=== PATIENT | male | born 1970 | race Caucasian/White ===

== ENCOUNTER 2017-01-09 23:02 | Emergency (ER) | payer SELFPAY ==
[~2017-01-09] VITALS: Ht 180.3 cm; Wt 81.0 kg
[~2017-01-09 23:02] MED LIST: CLIN150
[2017-01-09 23:06] VITALS: BP 185/111; PULSE 81; RESP 18; TEMP 97.4; O2SAT 100
[2017-01-09 23:10] VITALS: BP 154/99; PULSE 85; RESP 16; O2SAT 100
--- NOTE | 2017-01-09 23:20 | PD ---
HPI Chief Complaint: Skin Problem Time Seen by Provider: 23:15 Travel History International Travel<30 days: No Contact w/Intl Traveler<30days: No Traveled to known affect area: No History of Present Illness HPI ABOUT 6 DAYS AGO HIT FOREHEAD ON CABINET, NO LOC FELT OK DIDN'T SEEK CARE (NOT ON ANY ANTICAOGULANTS)...OVER PAST 2 DAYS HE HAS BEEN PICKING AT IT AND HAS NOW NOTED A RED LUMP ON FOREHEAD. DENIES PHOTOPHOBIA/SZ/FEVER/GAVIRIA. PFSH Past Surgical History Tonsillectomy: Yes (1978) Social History Alcohol Use: Yes (6PK WEEKENDS) Tobacco Use: Yes (1PPD) Allergies-Medications (Allergen,Severity, Reaction): Coded Allergies: No Known Allergies (Verified Allergy, Mild, 11/21/06) Reported Meds & Prescriptions Reported Meds & Active Scripts Active Bactrim DS (Sulfamethoxazole-Trimethoprim) 800-160 Mg Tab 1 Tab PO BID Reported Cleocin (Clindamycin HCl) 150 Mg Cap Review of Systems Except as stated in HPI: all other systems reviewed are Neg Skin: Positive Other (SWELLING AND REDNESS) Physical Exam Narrative GENERAL: SKIN: Warm and dry. HEAD: Atraumatic. Normocephalic. FOREHEAD HAS A 4CM DIAMETER CONTUSION WITH SUPERINFECTION, NO FLUCTUANCE ONLY INDURATIOIN , NO STREAKING , NO LAD, ERYTHEMATOUS AND WARM. EYES: Pupils equal and round. No scleral icterus. No injection or drainage. ENT: No nasal bleeding or discharge. Mucous membranes pink and moist. NO HEMOTYMPANUM NECK: Trachea midline. No JVD. CARDIOVASCULAR: Regular rate and rhythm. RESPIRATORY: No accessory muscle use. Clear to auscultation. Breath sounds equal bilaterally. GASTROINTESTINAL: Abdomen soft, non-tender, nondistended. Hepatic and splenic margins not palpable. MUSCULOSKELETAL: Extremities without clubbing, cyanosis, or edema. No obvious deformities. NEUROLOGICAL: Awake and alert. No obvious cranial nerve deficits. Motor grossly within normal limits. Five out of 5 muscle strength in the arms and legs. Normal speech. PSYCHIATRIC: Appropriate mood and affect; insight and judgment normal. Data Data Last Documented VS Vital Signs Date Time Temp Pulse Resp B/P Pulse Ox O2 Delivery O2 Flow Rate FiO2 01/09/17 23:50 155/82 100 01/09/17 23:10 85 16 01/09/17 23:06 97.4 Orders Sulfamet-Trimeth Ds 800-160 Mg (Bactrim (01/09/17 23:30) [facility] Medical Decision Making Medical Screen Exam Complete: Yes Emergency Medical Condition: Yes Medical Record Reviewed: Yes Differential Diagnosis CONTUSION V FRACTURE V SUPERINFECTION V HEMOTYMPANUM Narrative Course PATIENT NEUROLOGICALLY INTACT, WAS FOUND TO HAVE EARLY FACIAL CONTUSION RESOLVING AND DRAINING EDEMA TO NOSE AND TO RIGHT INFRAORBITAL REGION...THIS IS INDEPENDANT OF THE SMALL AREA OF CELLULITIS ON RIGHT HEMIFOREHEAD. Diagnosis Primary Impression: FACIAL CONTUSION RESOLVING Additional Impression: CELLULITIS Patient Instructions: Cellulitis (ED), General Instructions Scripts Sulfamethoxazole-Trimethoprim (Bactrim DS)800-160 Mg Tab1 Tab PO BID #20 TAB Prov:Jarrod López MD 01/09/17 Disposition: 01 DISCHARGE HOME Condition: Stable Jarrod López MD Jan 09, 2017 23:20
[2017-01-09] MEDS ORDERED: BACT800T5 PO (23:21)
[2017-01-09] MEDS ORDERED: SULFAMETHOXAZOLE-TRIMETHOPRIM DS 800-160 MG TAB PO ONE (23:30)
[2017-01-09 23:50] VITALS: BP 155/82
== END 2017-01-09 23:52 | disposition home or self-care (01) ==
LOC: PHED 23:02
DX: S00.83XA Contusion of other part of head, initial encounter (principal); W22.8XXA Striking against or struck by other objects, initial encounter; F17.210 Nicotine dependence, cigarettes, uncomplicated; L03.211 Cellulitis of face
CPT/HCPCS: 99283

== ENCOUNTER 2017-04-19 22:36 | Observation (INO) | payer SELFPAY ==
[~2017-04-19] VITALS: Ht 180.3 cm; Wt 79.0 kg
[~2017-04-19 22:36] MED LIST changes: +BACT800T5 PO
[2017-04-19 22:45] VITALS: BP 144/77; PULSE 86; RESP 16; TEMP 97.9; O2SAT 95
--- NOTE | 2017-04-19 22:53 | PD ---
HPI Chief Complaint: Chest Pain Time Seen by Provider: 22:47 Travel History International Travel<30 days: No Contact w/Intl Traveler<30days: No Traveled to known affect area: No History of Present Illness HPI The patient is a 46 year old male who presents to the [facility] emergency department with a history of chest pain that occurred prior to arrival 4-5 times this evening. He had near syncope with it. It was sharp in character associated with a pressure sensation. It is on the left side of his chest. He had sob, nausea, and lightheaded sensation with it. It was coming and going for 30 minutes. He denies having any diaphoresis. He denies having any prior history of myocardial infarction or congestive heart failure. He denies having any prior history of DVT or PE. He does have a family history of heart disease in his brother and his father. The patient reports that he last had a stress test done many years ago. He denies having a primary care physician. He reports that he was diagnosed with hypertension 5 years ago, however it has not been treated. He denies having any prior history of hyperlipidemia or diabetes mellitus. He does report that he smokes 2 packs of cigarettes per day. Otherwise on review of systems, the patient denies any recent fevers, cough, congestion, neck pain, abdominal pain, vomiting, diarrhea, urinary symptoms, or neurologic symptoms. The patient denies having any recent problems with indigestion or heartburn. [facility] Past Medical History Narrative Medical The patient's past medical history is significant for hypertension 5 years ago- untreated, tobacco abuse Cardiovascular Problems: Yes Past Surgical History Narrative Surgical The patient's past surgical history is significant for tonsillectomy, left wrist sx. Tonsillectomy: Yes (1978) Social History Alcohol Use: Yes (6PK WEEKENDS) Tobacco Use: Yes (1PPD) Substance Use: No Allergies-Medications (Allergen,Severity, Reaction): Coded Allergies: No Known Allergies (Verified , 11/21/06) Reported Meds & Prescriptions Reported Meds & Active Scripts Active No Active Prescriptions or Reported Medications Review of Systems Except as stated in HPI: all other systems reviewed are Neg General / Constitutional: No: Fever Eyes: No: Visual changes HENT: Positive: Lightheadedness, No: Headaches, Neck Pain Cardiovascular: Positive: Chest Pain or Discomfort, Dyspnea on exertion, No: Diaphoresis Respiratory: No: Shortness of Breath Gastrointestinal: Positive: Nausea, No: Vomiting, Diarrhea, Abdominal Pain Genitourinary: No: Dysuria Musculoskeletal: No: Pain Skin: No Rash Neurologic: No: Weakness, Focal Abnormalities, Change in Mentation, Slurred Speech, Sensory Disturbance Psychiatric: No: Depression Endocrine: No: Polydipsia Hematologic/Lymphatic: No: Easy Bruising Physical Exam Narrative General: The patient is a well-developed well-nourished male in no acute distress. Head and Neck exam: Head is normocephalic atraumatic. Eyes: EOMI, pupils are equal round and reactive to light. Nose: Midline septum with pink mucous membranes Mouth: Dentition unremarkable. Moist mucus membranes. Posterior oropharynx is not erythematous. No tonsillar hypertrophy. Uvula midline. Airway patent. Neck: No palpable lymphadenopathy. No nuchal rigidity. No thyromegaly. Cardiovascular: Regular rate and rhythm without murmurs, gallops, or rubs. Lungs: Clear to auscultation bilaterally. No wheezes, rhonchi, or rales. Abdomen: Soft, without tenderness to palpation in all 4 quadrants of the abdomen. No guarding, rebound, or rigidity. Normal bowel sounds are audible. No tenderness on palpation of McBurney's point. Extremities: No clubbing, cyanosis, or edema. 2+ pulses in all 4 extremities. Back: No spinous process tenderness to palpation. No costovertebral angle tenderness to palpation. Neurologic Exam: Grossly nonfocal. Skin Exam: No rash noted. Intact skin that is warm and dry. Data Data Last Documented VS Vital Signs Date Time Temp Pulse Resp B/P (MAP) Pulse Ox O2 Delivery O2 Flow Rate FiO2 04/19/17 22:56 94 04/19/17 22:55 Nasal Cannula 2.00 04/19/17 22:45 97.9 86 16 144/77 (99) Orders Orders Electrocardiogram (04/19/17 22:49) B-Type Natriuretic Peptide (04/19/17 22:49) Ckmb (Isoenzyme) Profile (04/19/17 22:49) Complete Blood Count With Diff (04/19/17 22:49) Comprehensive Metabolic Panel (04/19/17 22:49) D-Dimer (04/19/17 22:49) Magnesium (Mg) (04/19/17 22:49) Prothrombin Time / Inr (Pt) (04/19/17 22:49) Act Partial Throm Time (Ptt) (04/19/17 22:49) Troponin I (04/19/17 22:49) Lipase (04/19/17 22:49) Chest, Single Ap (04/19/17 22:49) Ecg Monitoring (04/19/17 22:49) Bilateral Bp Monitoring (04/19/17 22:49) Iv Access Insert/Monitor (04/19/17 22:49) Oximetry (04/19/17 22:49) Oxygen Administration (04/19/17 22:49) Aspirin Chew (Aspirin Chew) (04/19/17 23:00) Nitroglycerin 2% Oint (Nitroglycerin 2% (04/19/17 23:00) Sodium Chloride 0.9% Flush (Ns Flush) (04/19/17 23:00) Nitroglycerin Sl (Nitrostat Sl) (04/19/17 23:00) Sodium Chlorid 0.9% 500 Ml Inj (Ns 500 M (04/19/17 23:00) Aspirin Chew (Aspirin Chew) (04/19/17 23:15) Ct Pulmonary Angiogram (04/19/17 23:22) CKMB (04/19/17 22:57) CKMB% (04/19/17 22:57) Iohexol 350 Inj (Omnipaque 350 Inj) (04/20/17 00:39) Admit Order (Ed Use Only) (04/20/17 00:59) Labs Laboratory Tests Test 04/19/17 22:57 White Blood Count 11.1 TH/MM3 Red Blood Count 5.05 MIL/MM3 Hemoglobin 16.0 GM/DL Hematocrit 46.5 % Mean Corpuscular Volume 92.2 FL Mean Corpuscular Hemoglobin 31.7 PG Mean Corpuscular Hemoglobin Concent 34.3 % Red Cell Distribution Width 13.1 % Platelet Count 318 TH/MM3 Mean Platelet Volume 7.3 FL Neutrophils (%) (Auto) 50.5 % Lymphocytes (%) (Auto) 40.2 % Monocytes (%) (Auto) 5.6 % Eosinophils (%) (Auto) 3.0 % Basophils (%) (Auto) 0.7 % Neutrophils # (Auto) 5.6 TH/MM3 Lymphocytes # (Auto) 4.5 TH/MM3 Monocytes # (Auto) 0.6 TH/MM3 Eosinophils # (Auto) 0.3 TH/MM3 Basophils # (Auto) 0.1 TH/MM3 CBC Comment DIFF FINAL Differential Comment Prothrombin Time 10.4 SEC Prothromb Time International Ratio 0.9 RATIO Activated Partial Thromboplast Time 26.7 SEC D-Dimer Quantitative (PE/DVT) LESS THAN 0.19 MG/L FEU Blood Urea Nitrogen 9 MG/DL Creatinine 0.84 MG/DL Random Glucose 97 MG/DL Total Protein 7.5 GM/DL Albumin 3.8 GM/DL Calcium Level 8.8 MG/DL Magnesium Level 2.1 MG/DL Alkaline Phosphatase 73 U/L Aspartate Amino Transf (AST/SGOT) 18 U/L Alanine Aminotransferase (ALT/SGPT) 28 U/L Total Bilirubin 0.2 MG/DL Sodium Level 142 MEQ/L Potassium Level 3.5 MEQ/L Chloride Level 107 MEQ/L Carbon Dioxide Level 22.9 MEQ/L Anion Gap 12 MEQ/L Estimat Glomerular Filtration Rate 99 ML/MIN Total Creatine Kinase 119 U/L Creatine Kinase MB 1.2 NG/ML Troponin I LESS THAN 0.02 NG/ML B-Type Natriuretic Peptide 2 PG/ML Lipase 245 U/L MDM Medical Decision Making Medical Screen Exam Complete: Yes Emergency Medical Condition: Yes Medical Record Reviewed: Yes Interpretation(s) Last Impressions CT Angiography 04/19/172321 Signed Impressions: Service Date/Time: Thursday, April 20, 2017 00:30 - CONCLUSION: 1. No evidence of pulmonary embolism.8 Jose Vega MD Chest X-Ray 04/19/17 8518 Signed Impressions: Service Date/Time: Wednesday, April 19, 2017 23:03 - CONCLUSION: 1. No acute cardiopulmonary disease. Jose Vega MD Differential Diagnosis Acute coronary syndrome, versus pulmonary embolism, versus aortic dissection, versus acid reflux, versus pneumonia, versus new-onset congestive heart failure Narrative Course During the course of the patients emergency department visit, the patients history, examination, and differential diagnosis were reviewed with the patient. The patient had IV access obtained and blood work sent for analysis. The patient was placed on a all purpose clerk with oximetry and blood pressure monitoring. An ECG was done on arrival that shows a sinus rhythm with an occasional supraventricular premature complexes, heart rate of 82, incomplete right bundle branch block, no acute ST segment elevation or depression. QRS duration is 101 ms, QTC 406 ms. The patient was initially provided sublingual nitroglycerin 1, normal saline a 500 mL bolus, nitroglycerin 1 inch to the chest wall, aspirin 162 mg by mouth 1. The patients laboratory studies were reviewed and remarkable for a white count of 11.1, hemoglobin 16, platelets 318, normal differential. CMP is unremarkable , initial set of cardiac enzymes are negative, BNP is 2, PT PTT within normal limits per Radiology studies were reviewed and remarkable for a chest x-ray that shows no acute cardiopulmonary disease. CTA to rule out PE shows no evidence of pulmonary embolism. The patient will be admitted to the chest pain center for rule out serial cardiac enzyme protocol followed by stress testing. The patients results were discussed with the patient, including the plan of care. I explained that further testing and/ or monitoring is indicated based on the patients history, examination, and/ or laboratory findings. Therefore, I recommended admission for additional evaluation. The patient expressed understanding and was agreeable with this plan. The patient was admitted to the hospital in stable condition and sent to a bed under the care of chest pain center. Diagnosis Primary Impression: Chest pain, rule out acute myocardial infarction Admitting Information Admitting Physician Requests: Observation Scripts No Active Prescriptions or Reported Meds Lexis Ashley MD Apr 19, 2017 22:53
[2017-04-19 22:56] VITALS: O2SAT 94
[2017-04-19] MEDS ORDERED: SODIUM CHLORID 0.9% 500 ML INJ 500 ML IV ONE (23:00)
[2017-04-19] MEDS ORDERED: NITROGLYCERIN 0.4 MG SL 25 TABS/BTL SL ONE (23:00)
[2017-04-19] MEDS ORDERED: SODIUM CHLORIDE 0.9% FLUSH 10 ML FLUSH IVF PRN (23:00)
[2017-04-19] MEDS ORDERED: NITROGLYCERIN 2% OINT 1 GM PACKET TOP ONE (23:00)
[2017-04-19] MEDS ORDERED: ASPIRIN 81 MG CHEW TAB PO ONE (23:00)
[2017-04-19] MEDS ORDERED: ASPIRIN 81 MG CHEW TAB CHEW ONE (23:15)
[2017-04-19 23:25] LABS: AUTOMATED NEUTROPHIL # 5.6 TH/MM3 (1.8-7.7); BASOPHIL # 0.1 TH/MM3 (0-0.2); BASOPHIL % 0.7 % (0.0-2.0); EOSINOPHIL # 0.3 TH/MM3 (0-0.4); HEMATOCRIT 46.5 % (39.0-51.0); HEMO FLAGS DIFF FINAL; LYMPH % 40.2 % (9.0-44.0); LYMPHOCYTE # 4.5 TH/MM3 (1.0-4.8); MEAN CELL VOLUME 92.2 FL (80.0-100.0); MEAN CORPUSCULAR HEMOGLOBIN 31.7 PG (27.0-34.0); MEAN CORPUSCULAR HGB CONC 34.3 % (32.0-36.0); MONO % 5.6 % (0.0-8.0); NEUT % 50.5 % (16.0-70.0); PLATELET COUNT 318 TH/MM3 (150-450); RED BLOOD COUNT 5.05 MIL/MM3 (4.50-5.90); RED CELL DISTRIBUTION WIDTH 13.1 % (11.6-17.2); WHITE BLOOD COUNT 11.1 TH/MM3 (4.0-11.0)
[2017-04-19 23:37] LABS: APTT (PATIENT) 26.7 SEC (24.3-30.1); INTERNATIONAL NORMALIZED RATIO 0.9 RATIO; PROTHROMBIN TIME - PATIENT 10.4 SEC (9.8-11.6)
[2017-04-19 23:41] LABS: ALT (GPT) 28 U/L (12-78)
[2017-04-19 23:45] LABS: ALKALINE PHOSPHATASE 73 U/L (45-117); CREATINE KINASE 119 U/L (39-308); TOTAL BILIRUBIN ADULT 0.2 MG/DL (0.2-1.0)
--- NOTE | 2017-04-19 23:46 | RADRPT ---
EXAM DATE/TIME: 04/19/2017 23:03 [facility] COMPARISON: No previous studies available for comparison. INDICATIONS : Chest pain and nausea. MEDICAL HISTORY : None. SURGICAL HISTORY : None. ENCOUNTER: Initial ACUITY: 1 day PAIN SCORE: 3/10 LOCATION: Bilateral chest FINDINGS: A single view of the chest demonstrates the lungs to be symmetrically aerated without evidence of mas s, infiltrate or effusion. The cardiomediastinal contours are unremarkable. Osseous structures are intact. CONCLUSION: 1. No acute cardiopulmonary disease. Jose Vega MD on April 19, 2017 at 23:45 Board Certified Radiologist. This report was verified electronically.
[2017-04-19 23:47] LABS: ANION GAP 12 MEQ/L (5-15); AST (GOT) 18 U/L (15-37); BICARBONATE 22.9 MEQ/L (21.0-32.0); BLOOD UREA NITROGEN 9 MG/DL (7-18); CHLORIDE 107 MEQ/L (98-107); GLOMERULAR FILTRATION RATE 99 ML/MIN (>89); MAGNESIUM 2.1 MG/DL (1.5-2.5); POTASSIUM 3.5 MEQ/L (3.5-5.1); SODIUM (NA) 142 MEQ/L (136-145)
[2017-04-19 23:57] LABS: CKMB 1.2 NG/ML (0.5-3.6)
[2017-04-20] MEDS ORDERED: IOHEXOL 350 MG/ML 10 ML VIAL (for RAD DIAG) IVCONTRAST ONE (00:39)
--- NOTE | 2017-04-20 01:03 | RADRPT ---
EXAM DATE/TIME: 04/20/2017 00:30 [facility] COMPARISON: No previous studies available for comparison. INDICATIONS : Chest pain and shortness of breath. IV CONTRAST: 75 cc Omnipaque 350 (iohexol) IV RADIATION DOSE: 11.85 CTDIvol (mGy) MEDICAL HISTORY : Cardiovascular disease. Hypertension. SURGICAL HISTORY : Tonsillectomy. ENCOUNTER: Initial ACUITY: 1 day PAIN SCALE: 1/10 LOCATION: chest TECHNIQUE: Volumetric scanning of the chest was performed using a pulmonary embolism protocol MIP images were re constructed. Using automated exposure control and adjustment of the mA and/or kV according to patien t size, radiation dose was kept as low as reasonably achievable to obtain optimal diagnostic quality images. DICOM format image data is available electronically for review and comparison. Follow-up recommendations for detected pulmonary nodules are based at a minimum on nodule size and pa tient risk factors according to Fleischner Society Guidelines. FINDINGS: Examination of the pulmonary vasculature demonstrates good filling of the main, lobar and segmental b ranches. There are no filling defects to suggest pulmonary embolism. Multiplanar reconstructions are also unremarkable. Examination of the lung mcnamara demonstrates no evidence of pulmonary nodule. No pleural fluid is iden tified. Examination of the mediastinum demonstrates no abnormally enlarged lymph nodes by CT criteria . No axillary or hilar abnormalities are identified. Coronary artery calcifications are present. The visualized upper abdomen demonstrates no abnormality. CONCLUSION: 1. No evidence of pulmonary embolism.8 Jose Vega MD on April 20, 2017 at 0:59 Board Certified Radiologist. This report was verified electronically.
[2017-04-20 01:34] VITALS: BP 123/60; PULSE 90; RESP 18; O2SAT 94
[2017-04-20 02:53] VITALS: O2SAT 93
[2017-04-20] MEDS ORDERED: ONDANSETRON HCL 4 MG/2 ML VIAL IV PUSH PRN (03:00)
[2017-04-20] MEDS ORDERED: SODIUM CHLORIDE 0.9% FLUSH 10 ML FLUSH IV FLUSH PRN (03:00)
[2017-04-20] MEDS ORDERED: ACETAMINOPHEN 500 MG CPLT PO PRN (03:00)
[2017-04-20 03:38] LABS: CREATINE KINASE 97 U/L (39-308)
[2017-04-20 03:59] VITALS: BP 136/67; PULSE 91; RESP 16; TEMP 96.1; O2SAT 94
[2017-04-20 07:56] LABS: CREATINE KINASE 88 U/L (39-308)
[2017-04-20 08:00] VITALS: PULSE 72
[2017-04-20] MEDS ORDERED: NITROGLYCERIN 0.4 MG SL 25 TABS/BTL SL PRN (08:00)
[2017-04-20 08:04] VITALS: BP 138/79; PULSE 75; RESP 18; TEMP 97.8; O2SAT 95
[2017-04-20] MEDS ORDERED: SODIUM CHLORIDE 0.9% FLUSH 10 ML FLUSH IV FLUSH SCH (09:00)
[2017-04-20] MEDS ORDERED: ASPIRIN 325 MG TAB PO SCH (09:00)
--- NOTE | 2017-04-20 09:54 | HHI.HP ---
HPI Primary Care Physician No Primary Care Physician Chief Complaint Chest pain History of Present Illness 46-year-old male with history of hypertension (no current medication) and current smoker presents emergency room for further evaluation of chest pain. Onset last evening prior to going to bed. Location left anterior chest. Describes pain as an elephant sitting on his chest with intermittent stabbing pains. No radiation of pain. Duration 30 minutes. Associated symptoms include nausea and dyspnea. Denied vomiting or diaphoresis. No particular movement or position may pain better or worse. Breathing did not make pain better or worse. No known precipitating or relieving factors. Denies similar pain in the past. Currently he is chest pain-free. Review of Systems General: No fatigue,weakness, fever, chills, or recent illness. Has been in his general state of health. No known injury or trauma. Endorses he recently moved furniture although does not feel as though he injured himself. HEENT: Current GAVIRIA he relates to nitroglycerin glycerin paste. Normally does not suffer from headaches. No vision changes. Chronic nasal drainage and post nasal drip. CV: As stated above. No current CP or pressure. No palpitations or dizziness. RESP: No SOB, wheeze, or sputum production. Current smoker, reports no change in "daily smoker's cough." GI: Nausea resolved. No vomiting, bowel changes, or diarrhea. No unintentional weight gain or weight loss. : No dysuria EXT: No lower leg edema, no paraesthesias MS: No discomfort, change in ROM, injury, or trauma. NEURO: No difficulty with balance, LOC, motor/sensory deficits PSYCH: No anxiety, depression, or situational stress. SKIN: No rashes, no concerning lesions Past Family Social History Allergies: Coded Allergies: No Known Allergies (Verified , 11/21/06) Past Medical History Hypertension (states he has been told by different providers he has hypertension , but has never followed up or started on medications.) Past Surgical History Tonsillectomy, left wrist surgery Reported Medications Reported Meds & Active Scripts Active No Active Prescriptions or Reported Medications No vitamins or herbal supplements. Active Ordered Medications Current Medications Medications (Trade) Dose Ordered Sig/Rafal Route Start Time Stop Time Status Last Admin (NS Flush) 2 ml UNSCH PRN IV FLUSH 04/20/17 03:00 (NS Flush) 2 ml BID IV FLUSH 04/20/17 09:00 04/20/17 09:05 (Tylenol) 500 mg Q4H PRN PO 04/20/17 03:00 04/20/17 03:04 (Zofran Inj) 4 mg Q6H PRN IV PUSH 04/20/17 03:00 (Nitrostat Sl) 0.4 mg Q5M PRN SL 04/20/17 08:00 (Aspirin) 325 mg DAILY PO 04/20/17 09:00 04/20/17 09:04 Family History Father CVA age 36 and multiple MIs in early 40s, age 57 small cell carcinoma. Brother MA age 18, age 41 due to melanoma. Social History No known coronary artery disease, diabetes, or hyperlipidemia. Reports being told by multiple providers at different times he has high blood pressure although never placed on BP medications. 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 Lifelong smoker. Currently smokes 2.5 packs daily. Past cardiac testing Exercise stress test over 10 years ago-unremarkable. Physical Exam Vital Signs Vital Signs Date Time Temp Pulse Resp B/P (MAP) Pulse Ox O2 Delivery O2 Flow Rate FiO2 04/20/17 08:04 97.8 75 18 138/79 (98) 95 04/20/17 03:59 96.1 91 16 136/67 (90) 94 04/20/17 03:16 04/20/17 02:53 93 04/20/17 01:34 90 18 123/60 (81) 94 Room Air 04/19/17 22:56 94 04/19/17 22:55 94 Nasal Cannula 2.00 04/19/17 22:45 97.9 86 16 144/77 (99) 95 Physical Exam GENERAL: Alert WN, WD, NAD, pleasant, male who appears older than stated age. HEAD: NC, AT CV: RRR, without murmur, rub, gallop, no JVD, S1-S2 no S3-S4. RESP: Clear lungs throughout bilateral, no crackles, wheeze, rhonchi, symmetrical chest rise, nonlabored, able to speak in full sentences ABD: Soft, NT, ND, no masses, positive bowel tones EXT: Pulses +24, no dependent edema MS: Normal tone 4 extremities, nontender, no obvious deformities, full range of motion NEURO: CN II through CN XII grossly intact, motor strength 5/5 PSYCH: A+O 3, pleasant affect, appropriate speech, appropriate mood and affect , insight and judgment SKIN: Normal turgor, normal texture, no lesions, no rashes, brisk cap refill, even hair distribution Laboratory Laboratory Tests Test 04/19/17 22:57 04/20/17 03:07 04/20/17 07:12 White Blood Count 11.1 Red Blood Count 5.05 Hemoglobin 16.0 Hematocrit 46.5 Mean Corpuscular Volume 92.2 Mean Corpuscular Hemoglobin 31.7 Mean Corpuscular Hemoglobin Concent 34.3 Red Cell Distribution Width 13.1 Platelet Count 318 Mean Platelet Volume 7.3 Neutrophils (%) (Auto) 50.5 Lymphocytes (%) (Auto) 40.2 Monocytes (%) (Auto) 5.6 Eosinophils (%) (Auto) 3.0 Basophils (%) (Auto) 0.7 Neutrophils # (Auto) 5.6 Lymphocytes # (Auto) 4.5 Monocytes # (Auto) 0.6 Eosinophils # (Auto) 0.3 Basophils # (Auto) 0.1 CBC Comment DIFF FINAL Differential Comment Prothrombin Time 10.4 Prothromb Time International Ratio 0.9 Activated Partial Thromboplast Time 26.7 D-Dimer Quantitative (PE/DVT) LESS THAN 0.19 Blood Urea Nitrogen 9 Creatinine 0.84 Random Glucose 97 Total Protein 7.5 Albumin 3.8 Calcium Level 8.8 Magnesium Level 2.1 Alkaline Phosphatase 73 Aspartate Amino Transf (AST/SGOT) 18 Alanine Aminotransferase (ALT/SGPT) 28 Total Bilirubin 0.2 Sodium Level 142 Potassium Level 3.5 Chloride Level 107 Carbon Dioxide Level 22.9 Anion Gap 12 Estimat Glomerular Filtration Rate 99 Total Creatine Kinase 119 97 88 Creatine Kinase MB 1.2 Troponin I LESS THAN 0.02 LESS THAN 0.02 LESS THAN 0.02 B-Type Natriuretic Peptide 2 Lipase 245 Result Diagram: 04/19/17225604/19/172256 Imaging Last Impressions CT Angiography 04/19/172321 Signed Impressions: Service Date/Time: Thursday, April 20, 2017 00:30 - CONCLUSION: 1. No evidence of pulmonary embolism.8 Jose Vega MD Chest X-Ray 04/19/172248 Signed Impressions: Service Date/Time: Jhonathan, April 19, 2017 23:03 - CONCLUSION: 1. No acute cardiopulmonary disease. Jose Vega MD Course EKG First-degree AV block, incomplete right bundle branch block Caprini VTE Risk Assessment Caprini VTE Risk Assessment: No/Low Risk (score <= 1) Caprini Risk Assessment Model Point Value = 1 Point Value = 2 Point Value = 3 Point Value = 5 Age 41-60 Minor surgery BMI > 25 kg/m2 Swollen legs Varicose veins or History of unexplained or recurrent spontaneous Oral contraceptives or hormone replacement Sepsis (< 1 month) Serious lung disease, including pneumonia (< 1 month) Abnormal pulmonary function Acute myocardial infarction Congestive heart failure (< 1 month) History of inflammatory bowel disease Medical patient at bed rest Age 61-74 Arthroscopic surgery Major open surgery (> 45 min) Laparoscopic surgery (> 45 min) Malignancy Confined to bed (> 72 hours) Immobilizing plaster cast Central venous access Age >= 75 History of VTE Family history of VTE Factor V Leiden Prothrombin [id number] Lupus anticoagulant Anticardiolipin antibodies Elevated serum homocysteine Heparin-induced thrombocytopenia Other congenital or acquired thrombophilia Stroke (< 1 month) Elective arthroplasty Hip, pelvis, or leg fracture Acute spinal cord injury (< 1 month) Prophylaxis Regimen Total Risk Factor Score Risk Level Prophylaxis Regimen 0-1 Low Early ambulation 2 Moderate Order ONE of the following: *Sequential Compression Device (SCD) *Heparin 5000 units SQ BID 3-4 Higher Order ONE of the following medications: *Heparin 5000 units SQ TID *Enoxaparin/Lovenox 40 mg SQ daily (WT < 150 kg, CrCl > 30 mL/min) *Enoxaparin/Lovenox 30 mg SQ daily (WT < 150 kg, CrCl > 10-29 mL/min) *Enoxaparin/Lovenox 30 mg SQ BID (WT < 150 kg, CrCl > 30 mL/min) AND/OR *Sequential Compression Device (SCD) 5 or more Highest Order ONE of the following medications: *Heparin 5000 units SQ TID (Preferred with Epidurals) *Enoxaparin/Lovenox 40 mg SQ daily (WT < 150 kg, CrCl > 30 mL/min) *Enoxaparin/Lovenox 30 mg SQ daily (WT < 150 kg, CrCl > 10-29 mL/min) *Enoxaparin/Lovenox 30 mg SQ BID (WT < 150 kg, CrCl > 30 mL/min) AND *Sequential Compression Device (SCD) Assessment and Plan Assessment and Plan #1 Atypical chest pain-admitted chest pain center. Ruled out with 3 sets of EKGs, cardiac enzymes, and monitored on telemetry overnight. He will be seen and evaluated by Dr. Presley Villegas. Discussed likelihood of completing exercise stress test after evaluation by harpooner. Patient is agreeable to plan of care. If unremarkable will discharge home with follow-up with PCP. He has been strongly encouraged and stressed the importance of establishing with a primary care provider for disease prevention and medical management. #2 Hypertension-education provided on importance of tight blood pressure control. Encouraged low-sodium diet, smoking cessation, and increasing daily activity. Plans to discharge home with lisinopril 10 mg daily. Discussed keeping a blood pressure log and take with him to PCP appointment. Information regarding Second & Fourth has been discussed and provided. #3 Tobacco use-strongly encouraging stressed the importance of tobacco cessation. Instructed him to quit smoking. Discussed Smoke-free [place] help line. Roxanna Alfredo Apr 20, 2017 09:54
--- NOTE | 2017-04-20 10:43 | EKG ---
Date Performed: 04/20/2017 Time Performed: 06:44:33 PTAGE: 46 years EKG: Sinus rhythm POSSIBLE RIGHT VENTRICULAR CONDUCTION DELAY BORDERLINE ECG NO SIG CHANGE PREVIOUS TRACING : 04/19/2017 22.56 DOCTOR: Presley Villegas Interpretating Date/Time 04/20/2017 10:42:43
--- NOTE | 2017-04-20 10:45 | EKG ---
Date Performed: 04/19/2017 Time Performed: 22:56:03 PTAGE: 46 years EKG: Sinus rhythm WITH OCCASIONAL SUPRAVENTRICULAR PREMATURE COMPLEXES INCOMPLETE RIGHT BUNDLE BRANCH BLOCK BORDERLINE ECG NO SIG CHANGE PREVIOUS TRACING : 01/04/2005 00.45 DOCTOR: Presley Villegas Interpretating Date/Time 04/20/2017 10:44:37
[2017-04-20] MEDS ORDERED: LISI10TA3 PO (11:25)
[2017-04-20 11:42] VITALS: BP 147/89; PULSE 80; RESP 18; TEMP 97.9; O2SAT 97
--- NOTE | 2017-04-20 12:54 | HHI.DCPOC ---
Discharge Care Plan Diagnosis: (1) Tobacco abuse (2) Atypical chest pain (3) Hypertension Goals to Promote Your Health * To prevent worsening of your condition and complications * To maintain your health at the optimal level Directions to Meet Your Goals Take your medications as prescribed Follow your dietary instruction Follow activity as directed Keep your appointments as scheduled Take your immunizations and boosters as scheduled If your symptoms worsen call your PCP, if no PCP go to Urgent Care Center or Emergency Room Smoking is Dangerous to Your Health. Avoid second hand smoke Call the 24-hour hour crisis hotline for domestic abuse at Roxanna Alfredo Apr 20, 2017 12:54
--- NOTE | 2017-04-20 12:57 | PD.CARD.PN ---
Subjective Subjective Remarks Patient seen and examined, chart reviewed and discussed with LEARNING SUPPORT RESOURCE ROOM TEACHER. Has RO for ACS and good ETT. Issues with HTN confronted and discussed at length with patient. Also tobacco cessation. Will DC on Lisinopril, diet and instructed to FU with PCP. Objective Medications Current Medications Medications (Trade) Dose Ordered Sig/Rafal Route Start Time Stop Time Status Last Admin (NS Flush) 2 ml UNSCH PRN IV FLUSH 04/20/17 03:00 (NS Flush) 2 ml BID IV FLUSH 04/20/17 09:00 04/20/17 09:05 (Tylenol) 500 mg Q4H PRN PO 04/20/17 03:00 04/20/17 03:04 (Zofran Inj) 4 mg Q6H PRN IV PUSH 04/20/17 03:00 (Nitrostat Sl) 0.4 mg Q5M PRN SL 04/20/17 08:00 (Aspirin) 325 mg DAILY PO 04/20/17 09:00 04/20/17 09:04 Vital Signs / I&O Vital Signs Date Time Temp Pulse Resp B/P (MAP) Pulse Ox O2 Delivery O2 Flow Rate FiO2 04/20/17 11:42 97.9 80 18 147/89 (108) 97 04/20/17 08:04 97.8 75 18 138/79 (98) 95 04/20/17 08:00 72 04/20/17 03:59 96.1 91 16 136/67 (90) 94 04/20/17 03:16 04/20/17 02:53 93 04/20/17 01:34 90 18 123/60 (81) 94 Room Air 04/19/17 22:56 94 04/19/17 22:55 94 Nasal Cannula 2.00 04/19/17 22:45 97.9 86 16 144/77 (99) 95 I/O 04/19/17 04/19/17 04/19/17 04/20/17 04/20/17 04/20/17 07:00 15:00 23:00 07:00 15:00 23:00 Intake Total 1091 ml Balance 1091 ml Intake Oral 591 ml IV Total 500 ml Laboratory Laboratory Tests Test 04/19/17 22:57 04/20/17 03:07 04/20/17 07:12 White Blood Count 11.1 TH/MM3 Red Blood Count 5.05 MIL/MM3 Hemoglobin 16.0 GM/DL Hematocrit 46.5 % Mean Corpuscular Volume 92.2 FL Mean Corpuscular Hemoglobin 31.7 PG Mean Corpuscular Hemoglobin Concent 34.3 % Red Cell Distribution Width 13.1 % Platelet Count 318 TH/MM3 Mean Platelet Volume 7.3 FL Neutrophils (%) (Auto) 50.5 % Lymphocytes (%) (Auto) 40.2 % Monocytes (%) (Auto) 5.6 % Eosinophils (%) (Auto) 3.0 % Basophils (%) (Auto) 0.7 % Neutrophils # (Auto) 5.6 TH/MM3 Lymphocytes # (Auto) 4.5 TH/MM3 Monocytes # (Auto) 0.6 TH/MM3 Eosinophils # (Auto) 0.3 TH/MM3 Basophils # (Auto) 0.1 TH/MM3 CBC Comment DIFF FINAL Differential Comment Prothrombin Time 10.4 SEC Prothromb Time International Ratio 0.9 RATIO Activated Partial Thromboplast Time 26.7 SEC D-Dimer Quantitative (PE/DVT) LESS THAN 0.19 MG/L FEU Blood Urea Nitrogen 9 MG/DL Creatinine 0.84 MG/DL Random Glucose 97 MG/DL Total Protein 7.5 GM/DL Albumin 3.8 GM/DL Calcium Level 8.8 MG/DL Magnesium Level 2.1 MG/DL Alkaline Phosphatase 73 U/L Aspartate Amino Transf (AST/SGOT) 18 U/L Alanine Aminotransferase (ALT/SGPT) 28 U/L Total Bilirubin 0.2 MG/DL Sodium Level 142 MEQ/L Potassium Level 3.5 MEQ/L Chloride Level 107 MEQ/L Carbon Dioxide Level 22.9 MEQ/L Anion Gap 12 MEQ/L Estimat Glomerular Filtration Rate 99 ML/MIN Total Creatine Kinase 119 U/L 97 U/L 88 U/L Creatine Kinase MB 1.2 NG/ML Troponin I LESS THAN 0.02 NG/ML LESS THAN 0.02 NG/ML LESS THAN 0.02 NG/ML B-Type Natriuretic Peptide 2 PG/ML Lipase 245 U/L Imaging Last [address] Angiography 04/19/17 [id number] Signed Impressions: Service Date/Time: Thursday, April 20, 2017 00:30 - CONCLUSION: 1. No evidence of pulmonary embolism.8 Jose Vega MD Chest X-Ray 04/19/17 [id number] Signed Impressions: Service Date/Time: Wednesday, April 19, 2017 23:03 - CONCLUSION: 1. No acute cardiopulmonary disease. MD Nelly Goldstein Donald J. MD Apr 20, 2017 12:57
--- NOTE | 2017-04-21 11:18 | TR ---
Date Performed: 04/20/2017 Time Performed: 11:06:04 DOCTOR: Thomas Layton DRUG LIST: CLINICAL HISTORY: REASON FOR TEST: REASON FOR ENDING: OBSERVATION: CONCLUSION: Chetan protocol completed. Stopped sec to reaching target heart rate and leg fatigue. Maximum SX=450 Target HR Achieved=88.0% Maximum WC=621/80 Total Exercise Time=6:22. No reprod chest pain. No ectopy. No st t segment changes to sugg ischemia. Good exercise tolerance. Hypertensive bp r esponse. Recovery quick and unremarkable. COMMENTS: Conclusion: Normal treadmill exercise. No evidence of ischemia.
== END 2017-04-20 14:19 | disposition home or self-care (01) ==
LOC: NEPE 22:36 → NEDA 04-20 01:00 → NEPGCP 04-20 03:28
PROVIDERS: ADMIT Internal Medicine Interventional Cardiology; ATTEND Internal Medicine Interventional Cardiology
DX: R07.89 Other chest pain (principal); I44.0 Atrioventricular block, first degree; I45.10 Unspecified right bundle-branch block; I10 Essential (primary) hypertension; F17.210 Nicotine dependence, cigarettes, uncomplicated
CPT/HCPCS: 71010; 71275; 80053; 82550; 82552; 83690; 83735; 83880; 84484; 85025; 85379; 85610; 85730; 93005; 93017; 96360; 99285; G0378; J7040; Q9967